=== PATIENT | female | born 1980 | race African-American/Black ===

== ENCOUNTER 2024-05-15 22:54 | Emergency (ER) | payer BC, SELFPAY ==
[2024-05-15] MEDS ORDERED: Sodium Chloride 0.9% 2,000 ML ONE (23:31)
[2024-05-15 23:57] LABS: BHCG - Serum Negative (NEGATIVE); Pregs Control Background? CLEAR/WHITE (CLR/WHITE); Pregs Control Bar Appear? YES (CONTROL BAR)
[2024-05-16 00:03] LABS: ALT (SGPT) 15 U/L (8-55); AST (SGOT) 17 U/L (5-34); Albumin 4.2 g/dL (3.5-5.0); Alkaline Phosphatase 79 U/L (40-110); Anion Gap 16 mmol/L (10-20); BUN (Urea Nitrogen) 9 mg/dL (7.0-18.7); Bilirubin, Total 0.4 mg/dL (0.2-1.2); Calc. Creatinine Clearance 0 mL/min (70-130); Carbon Dioxide 16 mmol/L (22-29); Chloride 109 mmol/L (98-107); Estimated GFR 71; Globulin 2.9 g/dL (2.4-3.5); Glucose 111 mg/dL (70-105); Potassium 3.4 mmol/L (3.5-5.1); Protein, Total 7.1 g/dL (6.0-8.3); Sodium 138 mmol/L (136-145)
[2024-05-16 00:05] LABS: Troponin I Less than 0.010 ng/mL (< 0.028)
[2024-05-16 00:13] LABS: Hematocrit 38.5 % (36.0-47.0); Hemoglobin 12.5 g/dL (12.0-16.0); Mean Corpuscular HGB CONC 32.5 g/dL (32.0-36.0); Mean Corpuscular Hemoglobin 30.5 pg (27.0-31.0); Mean Corpuscular Volume 93.8 fl (78.0-98.0); Mean Platelet Volume 7.3 fL (7.4-10.4); Platelet Count 192 10x3/uL (130-400); RBC Distribution Width 12.5 % (11.5-14.5); Red Blood Cell (RBC) Count 4.07 mill/uL (4.20-5.40); White Blood Cell (WBC) Count 9.3 10x3/uL (4.8-10.8)
[2024-05-16 00:15] LABS: Manual Diff?? YES
[2024-05-16 00:16] LABS: Band 2 % (5-11); Lymphocytes 7 % (21-51); MDiff Complete? YES; Neutrophil 86 % (42-75)
[2024-05-16 00:17] LABS: Anisocytosis SLIGHT = 6-15 cells (100X) (0-5/hpf); Monocytes 5 % (0-10); Platelet Adequacy Comment Appears Adequate
== END 2024-05-16 00:47 | disposition home or self-care (01) ==
LOC: MADERS 22:54
DX: T67.5XXA Heat exhaustion, unspecified, initial encounter (principal)
CPT/HCPCS: 71045; 80053; 83880; 84484; 84703; 85025; 93005; 96360; J7050